=== PATIENT | male | born 1985 | race Caucasian/White ===

== ENCOUNTER → 2019-01-02 | Emergency (ER) | payer OTHER ==
[~2019-01-02] VITALS: Ht 177.8 cm; Wt 103.8 kg
[~2019-01-02] MED LIST: LIDOcaine 1% w/epiNEPHrine 1:200,000 30ml vial IM ONE; TETanus/Pertussis (Acell)/Diphther VAC/PF (Tdap-Adult) 0.5ml syringe IM ONE
[2019-01-02 16:40] VITALS: BP 123/82
== END | disposition home or self-care (01) ==
LOC: ER 16:28
DX: S51.822A Laceration with foreign body of left forearm, initial encounter (principal); W45.8XXA Other foreign body or object entering through skin, initial encounter; Y93.89 Activity, other specified; Y92.89 Other specified places as the place of occurrence of the external cause; Y99.8 Other external cause status
CPT/HCPCS: 12031; 73090; 90471; 90715; 99284; J3490